=== PATIENT | female | born 1990 | race Caucasian/White ===

== ENCOUNTER 2021-11-22 08:56 | Inpatient (IN) | payer OTHER, SELFPAY ==
[2021-11-22] VITALS (131 sets, daily range): BP systolic 94–131; BP diastolic 51–84; PULSE 70–110; RESP 16–18; TEMP 36.8–37.2; O2SAT 97–100; BMI 31.1
--- NOTE | 2021-11-22 09:32 | LDADM ---
This patient, Kirti Cagle, was admitted to Labor/Delivery/Recovery 102 on 11/22/21 at 08:56. Plans for labor, pain management and were discussed with patient. Patient/family oriented to hospital policies and general routines including ID bracelet, bed and alarms, visiting hours, pain management, procedures, bathroom and other care routines, personal items, smoking policy, room service/diet and guest tray routines, security routines, and visiting hours. Patient/Family are encouraged to report perceived risks to care and to ask questions if they do not understand what they are told or what they should do. See OBIX for further documentation.
[2021-11-22] MEDS: OXYTOCIN 30 UNITS/NS 500 ML 30 UNITS/500 ML BAG IV CONT (09:51)
[2021-11-22] MEDS: LACTATED RINGERS 1,000 ML 125 ML IV CONT ×2 (09:51→12:07)
[2021-11-22 10:05] LABS: Basophils Absolute Auto 0.1 K/mm3 (0.0-0.1); Basophils Percent Auto 0.4 % (0.2-1.2); Eosinophils Absolute Auto 0.1 K/mm3 (0-0.3); Eosinophils Percent Auto 0.7 % (0-4.4); Hemoglobin 11.2 g/dL (12.0-15.0); Immature Granulocyte Absolute 0.21 K/mm3 (0.00-0.031); Immature Granulocyte Percent A 1.8 % (0-0.5); Lymphocytes Absolute Auto 1.76 K/mm3 (0.9-3.2); Lymphocytes Percent Auto 15.2 % (18.3-44.2); Mean Corpuscular HGB Conc 33.9 g/dl (32-36); Mean Corpuscular Hemoglobin 31.5 pg (26-34); Mean Platelet Volume 11.2 fl (7.4-10.4); Monocytes Percent Auto 8.4 % (2.6-8.5); Neutrophils Absolute Auto 8.5 K/mm3 (1.3-6.7); Neutrophils Percent Auto 73.5 % (45.5-73.1); Platelet Count Result 243 k/mm3 (150-375); Red Blood Count 3.55 M/mm3 (4.2-5.4); Red Cell Distribution Width 12.7 % (11.5-14.5); White Blood Count 11.6 K/mm3 (4.5-10.0)
--- NOTE | 2021-11-22 12:02 | WPDANESEPP ---
Anes - Eval Pre Procedure Procedure: Labor Epidural Date/Time: 11/22/21 12:02 Surgeon: Anish Preop Diagnosis: Pain during labor Pre Op Diagnosis: induction of labor Patient Data Age: 31 Gender: F Height: 1.73 m Weight: 92.8 kg Last Vital Signs Temp 37.1 C 11/22/21 11:30 Pulse 88 11/22/21 12:00 BP 120/76 11/22/21 12:00 O2 Del Method Room Air 11/22/21 09:32 Allergies Allergy/AdvReac Type Severity Reaction Status Date / Time No Known Allergies Allergy Verified 11/07/21 14:52 Home Medications Medication Instructions Recorded Confirmed Type Lactobacillus 1 cap PO DAILY 11/07/21 11/22/21 History acidophilus-Bifidobac.animalis 2.5 billion cell capsule (Daily Probiotic) loratadine-pseudoephedrine ER 10 1 tablet PO DAILY 11/07/21 11/22/21 History mg-240 mg tablet,extended [id number] (Claritin-D 24 Hour) prenat.vits,allyson,cqj-[id number]-[id number] 1 tablet PO DAILY 11/07/21 11/22/21 History Laboratory Tests 11/22/21 11/22/21 11/22/21 09:37 09:37 09:37 WBC 11.6 K/mm3 H K/mm3 (4.5-10.0) RBC 3.55 M/mm3 L M/mm3 (4.2-5.4) Hgb 11.2 g/dL L g/dL (12.0-15.0) Hct 33.0 % L % (37.0-47.0) MCV 93.0 fl fl (80-100) MCH 31.5 pg pg (26-34) MCHC 33.9 g/dl g/dl (32-36) RDW 12.7 % % (11.5-14.5) Plt Count 243 k/mm3 k/mm3 (150-375) MPV 11.2 fl H fl (7.4-10.4) Immature Gran % (Auto) 1.8 % H % (0-0.5) Neut % (Auto) 73.5 % H % (45.5-73.1) Lymph % (Auto) 15.2 % L % (18.3-44.2) [place] % (Auto) 8.4 % % (2.6-8.5) Eos % (Auto) 0.7 % % (0-4.4) Baso % (Auto) 0.4 % % (0.2-1.2) Lymph # (Auto) 1.76 K/mm3 K/mm3 (0.9-3.2) [place] # (Auto) 1.0 K/mm3 H K/mm3 (0.1-0.6) Eos # (Auto) 0.1 K/mm3 K/mm3 (0-0.3) Baso # (Auto) 0.1 K/mm3 K/mm3 (0.0-0.1) Abs Immat Gran (auto) 0.21 K/mm3 H K/mm3 (0.00-0.031) Absolute Neuts (auto) 8.5 K/mm3 H K/mm3 (1.3-6.7) Absolute Nucleated RBC 0.0 K/mm3 K/mm3 (0.0-0.012) Nucleated RBC % 0.0 % % (0.0-0.2) RPR Pending Blood Type O Positive Antibody Screen Negative Patient hx anesthesia problems: none Family hx anesthesia problems: none Results Review: All pre-operative results and documents have been reviewed as part of the pre-operative evaluation. [facility] Family History Family History Father Acute rheumatoid arthritis Grandparent Acute rheumatoid arthritis Social History Social History Smoking status: Never smoker Second hand tobacco smoke exposure: No Substance use: never Spiritual care concerns: No Exam Day of Procedure 11/22/21 12:02 Patient weight: overweight Heart: regular rate and rhythm Lungs: clear to auscultation Airway: special considerations and other Neurological: alert and oriented
--- NOTE | 2021-11-22 12:06 | WPDOBADMIT ---
Obstetrics - Admit Note Admission Note: record reviewed. Additions to the history and/or subsequent changes in the physical findings follow. 31 y/o at 39 1/7 weeks gestation here for scheduled induction of labor. GBS neg. She says she has had a lot of contractions recently. No leakage of fluid or vaginal bleeding. AVSS NST reactive TOCO: irregular contractions ABD soft, nonntender, gravid, vertex EXT nontender Cervix 2-3/50/-2. AROM with clear fluid. Vertex. A: IUP at term with favorable cervix, desiring induction of labor. P: Oxytocin. Anticipate .
--- NOTE | 2021-11-22 17:01 | P.PCNOB_ITS ---
OB - Delivery Note Procedure Delivery date: 11/22/21 Procedure: Induction of labor with Induction method: Per Pitocin Protocol Delivery augmentation: Rupture of Membranes Delivery monitor: External FHT, External Uterine and Internal Uterine Route of delivery: Laceration Description: None Specimen: Yes (cord blood) Quantitative Blood Loss (ml): 240 Anesthesia type: Epidural Disposition: PACU Complications: None Narrative: 31 y/o at 39 1/7 weeks gestation who presented to the hospital for induction of labor. Oxytocin was administered intravenously. Amniotomy was performed with return of clear fluid. She received an epidural for pain control. Her labor progressed and her cervix dilated completely. She pushed with good effort and delivered the infant's head to the perineum, followed by the body. The nose and mouth were bulb suctioned. After a delay, the cord was clamped and cut. The infant was handed off the field. Cord blood was collecte d. The placenta delivered spontaneously and was grossly normal in appearance. The usual 3 vessel cord was noted. The perineum was intact. Needle and instrument counts were correct. The patient was taken to recovery room in stable condition. The went to the nursery in stable condition. I was present and scrubbed for the entire delivery. Baby Date of : 11/22/21 Time of : 16:51 Weeks of gestation at delivery: 39 Infant gender: Female presentation: vertex position: Right Occiput Anterior Placenta delivery description: Spontaneous and Normal Configuration Cord Vessel Description: 3 Vessels and Delayed Cord Clamping score one minute: 8 score five minutes: 9
--- NOTE | 2021-11-22 17:03 | PM.OBDSVD ---
DS: Admitting Diagnosis Discharge Date 11/23/21 Admitting Diagnosis IUP at 39 1/7 weeks DS: Discharge Diagnosis Discharge Diagnosis (1) (normal spontaneous vaginal delivery): Code(s): O80 - Encounter for full-term uncomplicated delivery Status: Acute OB - DS: Summary OB Procedures : None OB Procedures Intrapartum: Spontaneous Vag Delivery OB Procedures: : None Time Spent with Patient Time attestation: Total time spent providing and/or coordinating discharge services: DS: Data Data Completed and Pending Labs on day of discharge: Labs from last 24 hours 11/22/21 11/22/21 11/22/21 09:37 09:37 09:37 WBC 11.6 H RBC 3.55 L Hgb 11.2 L Hct 33.0 L MCV 93.0 MCH 31.5 MCHC 33.9 RDW 12.7 Plt Count 243 MPV 11.2 H Immature Gran % (Auto) 1.8 H Neut % (Auto) 73.5 H Lymph % (Auto) 15.2 L [place] % (Auto) 8.4 Eos % (Auto) 0.7 Baso % (Auto) 0.4 Lymph # (Auto) 1.76 [place] # (Auto) 1.0 H Eos # (Auto) 0.1 Baso # (Auto) 0.1 Abs Immat Gran (auto) 0.21 H Absolute Neuts (auto) 8.5 H Absolute Nucleated RBC 0.0 Nucleated RBC % 0.0 RPR Pending Blood Type O Positive Antibody Screen Negative Discharge Plan Discharge Attending physician on discharge: Adriel Oconnell Consulting providers: Kimberly Aj ; Gosia Martines Discharging Clinician: Adriel Oconnell Patient Disposition: Home, Self-Care Activity: pelvic rest Diet: regular Discharge Instructions: Education: Mom and Baby Guide Given to: Mother Follow-Up: Call your delivering provider's office for an appointment to be seen in: 6 Weeks Mom and baby should come to the [facility] for the follow-up appointment. Appointment Date/Time: November 26, 2021 at 10:00 am What to expect at your follow-up visit: Blood Pressure Check Physical Assessment Call [phone] if you are unable to keep your appointment time. BREAST CARE: * Wear a snug supportive bra. * For engorgement discomfort: Breast Feeding: * Apply warm moist washcloths * Express milk as needed to relieve engorgement * Wear loose clothing Bottle Feeding: * May apply ice packs * For sore nipples: * Identify correct latch-on * Apply warm moist washcloths before and after nursing * Air dry nipples after nursing * May apply Lansinoh cream to nipples EPISIOTOMY/PERINEAL CARE: * Until bleeding stops, use your aníbal bottle after urinating * Change your pad frequently throughout the day * You may take sitz baths several times a day (fill your bathtub with warm water and soak for 20 minutes.) Do NOT bathe in the water * No tub baths until seen by your physician - You may shower ACTIVITY: * Rest as much as possible. * Do not exercise or lift anything heavier than your baby (such as laundry or other children.) * Avoid stairs or driving as much as possible. * Do not put anything into the vagina. No douching, tampons, or sexual activity until seen by physician. NOTIFY PHYSICIAN IF YOU HAVE ANY QUESTIONS OR IF ANY OF THE FOLLOWING SYMPTOMS OCCUR: * If your episiotomy or incision becomes red, swollen, or more painful than what you have experienced in the hospital. * If your vaginal bleeding becomes foul smelling. * If your vaginal bleeding becomes more heavy than a period or if your bleeding changes from pink to bright red. However, you may pass an occasional walnut-sized clot once or twice for the first week . * If you experience a sharp, shooting pain in you calves. * If you discover a hard, reddened area on your breast or if you experience flu-like symptoms. DIET: * Eat regular, well-balanced meals. * Drink plenty of fluids daily. If , drink to thirst. *Call or return if temperature above 100.4? F, increased abdominal pain, increased vaginal bleeding or any new problems.
[2021-11-22] MEDS: OXYTOCIN 30 UNITS/NS 500 ML 30 UNITS/500 ML BAG 125 UNITS IV CONT (18:13)
[2021-11-22] MEDS: IBUPROFEN 600 MG TABLET PO (18:30)
--- NOTE | 2021-11-22 19:28 | OBPPTRN ---
Patient transferred to post room #285 via W/C. Support person present. Oriented to unit, room, information board, rooming in, admission packet and security measures. Patient verbalizes understanding.
[2021-11-23] MEDS: IBUPROFEN 600 MG TABLET PO ×2 (04:18→13:38)
[2021-11-23 04:20] VITALS: BP 117/75; PULSE 87; RESP 18; TEMP 36.8
[2021-11-23 05:31] LABS: Hematocrit 31.2 % (37.0-47.0); Hemoglobin 10.4 g/dL (12.0-15.0)
[2021-11-23 07:21] LABS: Rapid Plasma Reagin Non-Reactive (NonReactive)
[2021-11-23 08:00] VITALS: BP 110/71; PULSE 78; RESP 16; TEMP 37; O2SAT 98
--- NOTE | 2021-11-23 08:58 | WPDANLDPN2 ---
Anes-Prog Note L&D Date/Time: 11/23/21 08:58 Comfortable throughout: labor and delivery Neuraxial method: epidural Epidural/Spinal procedure site: clean & non-tender Neuro status: Neuro function grossly intact. Cardiovascular status: normal Respiratory status: normal Airway patency: baseline Mental status: baseline Post-Op hydration status: normal Vital Signs: Last Vital Signs Temp 36.8 C 11/23/21 04:20 Pulse 87 11/23/21 04:20 Resp 18 11/23/21 04:20 BP 117/75 11/23/21 04:20 Pulse Ox 100 11/22/21 18:20 O2 Del Method Room Air 11/22/21 19:50 Pain score (VAS): 03/05 I/O: Intake & Output 11/22/21 11/23/21 11/23/21 23:59 07:59 15:59 Intake Total 1000 Output Total 341 Balance 659 Post-procedural complaints: none Patient feedback: Patient satisfied with anesthetic care.
[2021-11-23] MEDS: MULTIVIT/MIN/PREN/FOL AC/IRON TABLET 1 TAB PO (09:33)
[2021-11-23] MEDS: LORATADINE/PSEUDOEPHEDRINE (*CRX) 10/240 MG TABLET ER 24 HR 1 TAB PO (09:33)
[2021-11-23] MEDS: ACETAMINOPHEN 325 MG TABLET 650 MG PO (09:36)
[2021-11-23] MEDS: LANOLIN (LANSINOH) 7.5 GM CREAM 1 APPLIC TOPICAL (09:37)
[2021-11-23 11:55] VITALS: BP 116/61; PULSE 81; RESP 16; TEMP 36.8; O2SAT 97
--- NOTE | 2021-11-23 13:49 | PM.OBPNVD ---
OB - PN: Subj Subjective Date/time seen: 11/23/21 13:49 Patient comments: no complaints and pain well controlled baby status: doing well and nursing well OB - PN: Obj Data Labs CBC & Chem 7: 11/23/21 04:26 Labs: Laboratory Results - last 24 hr 11/22/21 11/23/21 09:37 04:26 Hgb 10.4 L Hct 31.2 L RPR Non-reactive OB - PN A/P Plan day: 1 Plan: routine care, discharge home and follow up 6 weeks Time Spent With Patient Time: Total time spent is greater than 50% in coordination of care (as documented) at patient's floor/unit and/or counseling patient: Time with patient: less than 15 minutes Exam Const: General: cooperative, healthy appearing and comfortable Resp: Effort & Inspection: normal respiratory effort GI: Inspection: normal to inspection and other (Fundus firm below the umbilicus) : External Female Exam: other ( minimal bleeding)
[2021-11-23 17:30] VITALS: BP 124/79; PULSE 79; RESP 18; TEMP 36.8; O2SAT 98
--- NOTE | 2021-11-23 18:00 | PC.NURSE ---
Patient viewed the discharge video Mother & Baby Care, The First Two Weeks . Patient was given the opportunity and encouraged to ask questions. Patient verbalized understanding of information shared and has been given the mother/baby guide for home reference.
[2021-11-26 10:16] VITALS: BP 124/74; PULSE 79; RESP 20; TEMP 36.9; O2SAT 98
== END 2021-11-23 19:07 | disposition home or self-care (01) | DRG 807 ==
LOC: ANHLDR 17:04 → ANHOB2 11-23 17:56 → ANHLDR 11-26 09:46 → ANHOB2 11-26 09:46
PROVIDERS: Admitting Provider Obstetrics & Gynecology; Visit Provider Obstetrics & Gynecology
DX: O80 Encounter for full-term uncomplicated delivery (principal); Z37.0 Single live birth; Z3A.39 39 weeks gestation of pregnancy; Z23 Encounter for immunization
CPT/HCPCS: 36415; 85014; 85018; 85025; 86592; 86850; 86900; 86901; 90471; 90686; A9270; G0008; J2590; J2795; J7120

== ENCOUNTER 2022-02-04 12:51 | Emergency (ER) | payer OTHER, SELFPAY ==
[2022-02-04 12:58] VITALS: BP 128/77; PULSE 79; RESP 16; TEMP 36.7; O2SAT 98
--- NOTE | 2022-02-04 12:58 | ED.URI ---
HPI - URI/Sore Throat General Chief Complaint: Upper Respiratory Infection Stated Complaint: sinus x 9 days Time Seen by Provider: 02/04/22 13:32 Source: patient and RN notes reviewed Mode of arrival: ambulatory Limitations: no limitations History of Present Illness HPI Narrative: 31-year-old female presents concern for 90 history of sinus congestion, pressure, drainage. She reports she had a fever over the weekend. Reports she has been trying DayQuil without relief. She is breast feeding. MD elicited complaint: rhinorrhea and nasal congestion Related Data Home Medications Medication Instructions Recorded Confirmed Lactobacillus 1 cap PO DAILY 11/07/21 11/22/21 acidophilus-Bifidobac.animalis 2.5 billion cell capsule (Daily Probiotic) prenat.vits,allyson,gha-zwhi-husps 1 tablet PO DAILY 11/07/21 11/22/21 Allergies Allergy/AdvReac Type Severity Reaction Status Date / Time No Known Allergies Allergy Verified 11/07/21 14:52 Review of Systems Review of Systems: CONSTITUTIONAL: Reports malaise,fever. EYES: Denies visual changes, redness, or discharge. ENT: Reports rhinorrhea, congestion, sinus pain, otalgia CARDIOVASCULAR: Denies chest pain, palpitations, or edema. RESPIRATORY: Reports cough. Denies dyspnea. GASTROINTESTINAL: Denies abdominal pain, nausea, vomiting, diarrhea SKIN: Denies rash or itching. MUSCULOSKELETAL: Denies myalgia. NEUROLOGIC: Reports headache. All systems reviewed & are unremarkable except as noted in HPI and below PMFSH Family History Family History Father Acute rheumatoid arthritis Grandparent Acute rheumatoid arthritis Social History Social History Smoking status: Never smoker Second hand tobacco smoke exposure: No Substance use: never Spiritual care concerns: No Comments At time of signature, agree with nursing past medical, surgical, social and family history. There is no relevant family history pertinent to the presenting complaint Exam Narrative: GENERAL: Well-appearing, well-nourished, and in no acute distress. HEAD: Normocephalic EYES: PERRLA, conjunctivae clear ENT: Nares clear, turbinates edematous and erythematous. Mucous membranes moist. TM pearly mart with dull light reflex bilaterally; no tragal tenderness. Oropharynx not erythematous without lesions. Tonsils not enlarged and without exudate, no drooling, no hoarseness, no trismus, uvula midline. NECK: Supple. No lymphadenopathy CHEST: Clear to auscultation, breath sounds equal. No wheezing, rhonchi, rales, or stridor. No respiratory distress, speaks in full sentences. HEART: Regular rate and rhythm. No murmur heard. SKIN: Warm, dry, no rash. NEURO: Alert and oriented x3. PSYCH: Normal mood and affect Course Course Emergency Course: Patient is aware of diagnosis, understands and agrees to treatment plan. Anticipatory guidance given. Patient agrees to follow-up as directed and is aware of reasons to seek care at the emergency department. Portions of this record may have been created with voice recognition software Level of Care: Express Care Visit Vital Signs Vital signs: Reviewed. MDM - URI/Sore Throat MDM Narrative Medical decision making narrative: Differential diagnosis considered: Mason virus, strep pharyngitis, allergic rhinitis, upper respiratory tract infection, sinusitis, rhinosinusitis, nasopharyngitis. viral pharyngitis, otitis media, otitis externa, pneumonia, bronchitis, viral cough syndrome, viral syndrome, and influenza. Exam findings show no acute concerns or changes; patient is non-toxic appearing and is in no distress. Patient is appropriate for outpatient treatment and follow-up. Lab Data Attestation: I reviewed the patient's lab results. Critical Care Time Critical Care Time Critical Care Time: No Discharge Plan Discharge Clinical Impression: Acute ba
== END 2022-02-04 13:39 | disposition home or self-care (01) ==
PROVIDERS: Emergency Provider Nurse Practitioner
DX: J01.90 Acute sinusitis, unspecified (principal)
CPT/HCPCS: 99213; G0463